=== PATIENT | female | born 2000 | race Caucasian/White ===

== ENCOUNTER 2021-01-27 13:51 | Emergency (ER) | payer MEDICAID ==
[~2021-01-27] VITALS: Ht 165.1 cm; Wt 60.0 kg
[2021-01-27 15:29] LABS: BASOPHILS % 0.6 % (0.0-2.0); EOSINOPHILS % 0.5 % (0.0-5.0); HEMOGLOBIN. 12.5 g/dL (12.0-16.0); LYMPHOCYTES % 9.7 % (20.0-50.0); MEAN CORPUSCULAR HEMOGLOBIN 28.4 pg (28.0-32.0); MEAN CORPUSCULAR VOLUME 86.7 fL (81.0-99.0); MONOCYTES % 4.8 % (2.0-8.0); NEUTROPHILS % 84.4 % (40.0-76.0); PLATELET 286 x1000/uL (130-400); RED BLOOD CELL COUNT 4.38 mill/uL (4.2-5.4); RED CELL DISTRIBUTION WIDTH 15.9 % (11.6-14.6)
[2021-01-27 15:36] LABS: CHLORIDE 106 mEq/L (98-107)
[2021-01-27 15:46] LABS: B-HCG QUANTITATIVE < 1 mIU/mL (<3)
[2021-01-27 15:53] LABS: HCG SCREEN NEGATIVE
[2021-01-27 18:20] VITALS: BP 98/53
== END 2021-01-27 18:27 | disposition home or self-care (01) ==
LOC: ER 14:05
DX: N94.6 Dysmenorrhea, unspecified (principal); N93.9 Abnormal uterine and vaginal bleeding, unspecified; I49.9 Cardiac arrhythmia, unspecified
CPT/HCPCS: 36415; 76830; 76856; 80048; 81025; 84702; 84703; 85025; 86900; 93005; 99285